=== PATIENT | male | born 1930 | race Caucasian/White ===

== ENCOUNTER 2021-01-28 07:59 | Observation (INO) | payer MEDICARE ==
[2021-01-28] MEDS ORDERED: DILTIAZEM 125 MG in SODIUM CHLORIDE 0.9% 100 ML IV SCH (08:15)
--- NOTE | 2021-01-28 08:17 | ED ---
General Adult HPI - General Chief complaint: Arrhythmia/Palpitations Stated complaint: Tachycardia Time Seen by Provider: 01/28/21 08:00 Source: patient, EMS, RN notes reviewed Mode of arrival: EMS Limitations: no limitations - History of Present Illness Initial comments: Patient is a pleasant 89-year-old male presenting to the emergency Department with complaints of concerns for tachycardia. Patient has had some mild fullness in his chest since 8:00 last night. Patient did check his heart rhythm at home and has been variable between 109 and 150. Patient states his normal heart rate is in the 70s. Patient states fullness is mild. Patient denies palpitations. No dyspnea. No nausea vomiting. There was a somewhat similar episode years ago with negative heart catheterization and stress test. Patient saw Dr. rosado on. Patient also saw Dr. Kong and there was question whether or not to do ablation however patient has been symptom-free since that time. - Related Data Home Medications Medication Instructions Recorded Confirmed Aspirin EC [Ecotrin] 650 mg PO DAILY PRN 01/28/21 01/28/21 Furosemide [Lasix] 40 mg PO DAILY 01/28/21 01/28/21 Latanoprost [Xalatan 0.005%] 1 drop RIGHT EYE HS 01/28/21 01/28/21 Magnesium 200 mg PO HS 01/28/21 01/28/21 Metoprolol Tartrate [Lopressor] 25 mg PO BID 01/28/21 01/28/21 Montelukast [Singulair] 10 mg PO DAILY 01/28/21 01/28/21 Potassium Chloride ER [K-Dur 10] 10 meq PO DAILY 01/28/21 01/28/21 Timolol Maleate [Timolol Maleate 1 drop RIGHT EYE BID 01/28/21 01/28/21 0.5% Ophth Gel] hydrALAZINE HCL [Apresoline] 50 mg PO DIRECTED 01/28/21 01/28/21 Allergies Allergy/AdvReac Type Severity Reaction Status Date / Time No Known Allergies Allergy Verified 01/28/21 08:44 Review of Systems ROS Statement: Those systems with pertinent positive or pertinent negative responses have been documented in the HPI. ROS Other: All systems not noted in ROS Statement are negative. Constitutional: Denies: fever Eyes: Denies: eye pain ENT: Denies: ear pain Respiratory: Denies: cough, dyspnea Cardiovascular: Reports: as per HPI. Denies: palpitations Endocrine: Denies: fatigue Gastrointestinal: Denies: abdominal pain Genitourinary: Denies: urgency Musculoskeletal: Denies: back pain Skin: Denies: rash Neurological: Denies: weakness Past Medical History Past Medical History: Asthma, Cancer, Heart Failure, Hypertension Additional Past Medical History / Comment(s): melanoma History of Any Multi-Drug Resistant Organisms: None Reported Past Surgical History: Bowel Resection, Cholecystectomy Additional Past Surgical History / Comment(s): cataract Past Psychological History: No Psychological Hx Reported Smoking Status: Never smoker Past Alcohol Use History: Occasional Past Drug Use History: None Reported General Exam Limitations: no limitations General appearance: alert, in no apparent distress Head exam: Present: normocephalic Eye exam: Present: normal appearance Neck exam: Present: normal inspection Respiratory exam: Present: normal lung sounds bilaterally Cardiovascular Exam: Present: tachycardia, irregular rhythm GI/Abdominal exam: Present: soft. Absent: tenderness Extremities exam: Present: normal inspection. Absent: pedal edema, calf tenderness Neurological exam: Present: alert Psychiatric exam: Present: normal affect, normal mood Skin exam: Present: normal color Course Vital Signs 01/28/21 01/28/21 08:04 08:22 Temperature 97.9 F Pulse Rate 121 H 87 Respiratory 18 18 Rate Blood Pressure 128/98 128/63 O2 Sat by Pulse 99 98 Oximetry - Reevaluation(s) Reevaluation #1: 01/28/21 08:16 Patient briefly converted to normal sinus rhythm on the heart monitor with a rate of 96. Patient was placed on heart rhythm monitor secondary to tachycardia and to evaluate for heart rate. Repeat EKG shows narrow complex tachycardia with a rate of 152. QRS 94. QT 292. QTC 464. Left axis. Incomplete right bundle-branch block. No acute ST change. 01/28/21 08:27 EKG #3 shows normal sinus rhythm 88. MT 190. QRS 86. QT 344. QTC 416. Left axis. No acute ST change. Q wave in lead III. EKG Findings - EKG Comments: EKG Findings:: A. fib with RVR, rate 127. QRS 84. QT 276. QTc 41. Normal axis. Normal QRS. Nonspecific ST-T. Medical Decision Making - Medical Decision Making Patient reevaluated and resting comfortably in bed. Patient is in sinus rhythm on the monitor. Dr. Rehman has been paged Case was discussed with Dr. Rehman, who will admit his patient. - Lab Data Result diagrams: 01/28/21 08:22 01/28/21 08:22 Lab Results 01/28/21 01/28/21 01/28/21 Range/Units 08:22 08:22 08:22 WBC 7.1 (3.8-10.6) k/uL RBC 4.24 L (4.30-5.90) m/uL Hgb 15.1 (13.0-17.5) gm/dL Hct 45.0 (39.0-53.0) % MCV 105.9 H (80.0-100.0) fL MCH 35.5 H (25.0-35.0) pg MCHC 33.6 (31.0-37.0) g/dL RDW 12.9 (11.5-15.5) % Plt Count 214 (150-450) k/uL MPV 7.5 Neutrophils % 55 % Lymphocytes % 31 % Monocytes % 8 % Eosinophils % 4 % Basophils % 1 % Neutrophils # 3.9 (1.3-7.7) k/uL Lymphocytes # 2.2 (1.0-4.8) k/uL Monocytes # 0.6 (0-1.0) k/uL Eosinophils # 0.3 (0-0.7) k/uL Basophils # 0.1 (0-0.2) k/uL Macrocytosis Slight PT 10.0 (9.0-12.0) sec INR 0.9 (<1.2) APTT 25.2 (22.0-30.0) sec Sodium 137 (137-145) mmol/L Potassium 3.8 (3.5-5.1) mmol/L Chloride 104 (98-107) mmol/L Carbon Dioxide 26 (22-30) mmol/L Anion Gap 7 mmol/L BUN 24 H (9-20) mg/dL Creatinine 0.84 (0.66-1.25) mg/dL Est GFR (CKD-EPI)AfAm >90 (>60 ml/min/1.73 sqM) Est GFR (CKD-EPI)NonAf 78 (>60 ml/min/1.73 sqM) Glucose 117 H (74-99) mg/dL Calcium 9.2 (8.4-10.2) mg/dL Magnesium 2.1 (1.6-2.3) mg/dL Total Bilirubin 1.0 (0.2-1.3) mg/dL AST 32 (17-59) U/L ALT 19 (4-49) U/L Alkaline Phosphatase 100 (38-126) U/L Troponin I (0.000-0.034) ng/mL Total Protein 6.5 (6.3-8.2) g/dL Albumin 3.8 (3.5-5.0) g/dL TSH 2.300 (0.465-4.680) mIU/L Free T4 1.45 (0.78-2.19) ng/dL 01/28/21 Range/Units 08:22 WBC (3.8-10.6) k/uL RBC (4.30-5.90) m/uL Hgb (13.0-17.5) gm/dL Hct (39.0-53.0) % MCV (80.0-100.0) fL MCH (25.0-35.0) pg MCHC (31.0-37.0) g/dL RDW (11.5-15.5) % Plt Count (150-450) k/uL MPV Neutrophils % % Lymphocytes % % Monocytes % % Eosinophils % % Basophils % % Neutrophils # (1.3-7.7) k/uL Lymphocytes # (1.0-4.8) k/uL Monocytes # (0-1.0) k/uL Eosinophils # (0-0.7) k/uL Basophils # (0-0.2) k/uL Macrocytosis PT (9.0-12.0) sec INR (<1.2) APTT (22.0-30.0) sec Sodium (137-145) mmol/L Potassium (3.5-5.1) mmol/L Chloride (98-107) mmol/L Carbon Dioxide (22-30) mmol/L Anion Gap mmol/L BUN (9-20) mg/dL Creatinine (0.66-1.25) mg/dL Est GFR (CKD-EPI)AfAm (>60 ml/min/1.73 sqM) Est GFR (CKD-EPI)NonAf (>60 ml/min/1.73 sqM) Glucose (74-99) mg/dL Calcium (8.4-10.2) mg/dL Magnesium (1.6-2.3) mg/dL Total Bilirubin (0.2-1.3) mg/dL AST (17-59) U/L ALT (4-49) U/L Alkaline Phosphatase (38-126) U/L Troponin I <0.012 (0.000-0.034) ng/mL Total Protein (6.3-8.2) g/dL Albumin (3.5-5.0) g/dL TSH (0.465-4.680) mIU/L Free T4 (0.78-2.19) ng/dL - Radiology Data Radiology results: image reviewed (Chest x-ray reveals no acute process) Disposition Clinical Impression: New onset a-fib Disposition: ADMITTED IP TO THIS HOSP Is patient prescribed a controlled substance at d/c from ED?: No Decision Time: 09:30
[2021-01-28 08:43] LABS: Basophils # (A) 0.1 k/uL (0-0.2); Basophils % (A) 1 %; Eosinophils # (A) 0.3 k/uL (0-0.7); Eosinophils % (A) 4 %; HGB 15.1 gm/dL (13.0-17.5); Lymphocytes # (A) 2.2 k/uL (1.0-4.8); Lymphocytes % (A) 31 %; MCH 35.5 pg (25.0-35.0); MCHC 33.6 g/dL (31.0-37.0); MCV 105.9 fL (80.0-100.0); Macrocytosis Slight; Mean Platelet Volume 7.5; Monocytes # (A) 0.6 k/uL (0-1.0); Monocytes % (A) 8 %; Neutrophils # (A) 3.9 k/uL (1.3-7.7); Neutrophils % (A) 55 %; Platelet Count 214 k/uL (150-450); RBC 4.24 m/uL (4.30-5.90); RDW 12.9 % (11.5-15.5); WBC 7.1 k/uL (3.8-10.6)
--- NOTE | 2021-01-28 08:51 | XR ---
EXAMINATION TYPE: XR chest 1V portable DATE OF EXAM: 01/28/2021 COMPARISON: NONE HISTORY: Dysrhythmia. TECHNIQUE: Single AP portable frontal view of the chest is obtained. FINDINGS: There is mild chronic parenchymal change without suspicious focal air space opacity, pleur al effusion, or pneumothorax seen. The cardiac silhouette size is stable and within normal limits. Overlying EKG leads. The osseous structures are demineralized.. Degenerative change right glenohumera l joint. IMPRESSION: No acute process.
[2021-01-28 08:53] LABS: ALT 19 U/L (4-49); AST 32 U/L (17-59); African American GFR (CKD) >90 (>60 ml/min/1.73 sqM); Albumin 3.8 g/dL (3.5-5.0); Alkaline Phosphatase 100 U/L (38-126); Anion Gap 7 mmol/L; Blood Urea Nitrogen 24 mg/dL (9-20); Calcium 9.2 mg/dL (8.4-10.2); Carbon Dioxide 26 mmol/L (22-30); Chloride 104 mmol/L (98-107); Glucose 117 mg/dL (74-99); Magnesium 2.1 mg/dL (1.6-2.3); Non-African American GFR(CKD) 78 (>60 ml/min/1.73 sqM); Potassium 3.8 mmol/L (3.5-5.1); Sodium 137 mmol/L (137-145); Total Protein 6.5 g/dL (6.3-8.2)
[2021-01-28 08:55] LABS: INR 0.9 (<1.2); Partial Thromboplastin Time 25.2 sec (22.0-30.0)
[2021-01-28 09:09] LABS: T4, Free (Free Thyroxine) 1.45 ng/dL (0.78-2.19)
[2021-01-28] MEDS ORDERED: NALOXONE 0.4 MG/ML 1 ML VIAL IV PRN (09:30)
[2021-01-28] MEDS: SODIUM CHLORIDE 0.9% 1,000 ML IV SCH (09:47)
--- NOTE | 2021-01-28 12:18 | P.CRDCN ---
History of Present Illness History of present illness: HISTORY OF PRESENTING ILLNESS This is a pleasant 89-year-old male past medical history significant for SVT, hypertension, melanoma and asthma. He does not follow regularly in the office with a manager marketing communication. He has seen Dr. Bob in the past and they discussed a possible EP study and SVT ablation however the patient decided not to proceed. According to the office noted from 2017 the patient had undergone a LHC approximately 6-8 years prior to that time which was normal. We have been asked to see in consultation for new onset a-fib. He states last night while checking his pulse at home, which he does routinely, and his heart rate was fluctuating from 100-150. He denies chest pain, shortness of breath, dizziness, nausea, vomiting or diaphoresis. EKG on arrival revealed atrial fibrillation with mildly rapid heart rate. 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 He subsequently spontaneously converted back to sinus and has been maintaining that ever since. Chest x-ray is negative for acute cardiopulmonary process. Laboratory data reviewed, WBC 7.1, hgb 15.1, plt 214, sodium 137, potassium 3.8, creatinine 0.84, magnesium 2.1, cardiac enzymes negative 1, TSH 2.3. Currently cardiac medications include aspirin 325 mg daily, Lasix 40 mg daily, Lopressor 25 mg twice a day and hydralazine 50 mg daily however the patient states he has not been taking hydralazine because it seems to cause him an upset stomach. REVIEW OF SYSTEMS At the time of my exam: CONSTITUTIONAL: Denies fever or chills. CARDIOVASCULAR: Denies chest pain, shortness of breath, orthopnea, PND or palpitations. RESPIRATORY: Denies cough. GASTROINTESTINAL: Denies abdominal pain, diarrhea, constipation, nausea or vomiting. MUSCULOSKELETAL: Denies myalgias. NEUROLOGIC: Denies numbness, tingling, headacbe or weakness. ENDOCRINE: Denies fatigue, weight change, polydipsia or polyurina. GENITOURINARY: Denies burning, hematuria or urgency with micturation. HEMATOLOGIC: Denies history of anemia or bleeding. PHYSICAL EXAMINATION Blood pressure 138/87 heart rate 82 afebrile and maintaining oxygen saturation on room air. CONSTITUTIONAL: No apparent distress. Obese. HEENT: Head is normocephalic. Pupils are equal, round. Sclerae anicteric. Mucous membranes of the mouth are moist. No JVD. No carotid bruit. CHEST EXAMINATION: Lungs are clear to auscultation. No chest wall tenderness is noted on palpation or with deep breathing. HEART EXAMINATION: Regular rate and rhythm. S1, S2 heard. Soft systolic ejection murmur at the base, no gallops or rub. ABDOMEN: Soft, nontender. Positive bowel sounds. EXTREMITIES: 2+ peripheral pulses, trace lower extremity edema and no calf tenderness. NEUROLOGIC EXAMINATION: Patient is awake, alert and oriented x3. ASSESSMENT New onset paroxysmal atrial fibrillation, currently in sinus SVT, spontaneously converted Hypertension Asthma Melanoma PLAN Increase lopressor to 50 mg BID. Discontinue hydralazine. Initiate eliquis 5 mg BID and check the cost prior to discharge. Obtain 2D echocardiogram and doppler study to assess cardiac structure and function. Continue to obtain serial cardiac enzymes to rule out an acute event. If enzymes are normal he can be discharged this afternoon. Follow up in the office with Dr. Avina next week. Thank you kindly for this consultation. Nurse Practitioner note has been reviewed, I agree with a documented findings and plan of care. Patient was seen and examined. Past Medical History Past Medical History: Asthma, Cancer, Heart Failure, Hypertension Additional Past Medical History / Comment(s): melanoma History of Any Multi-Drug Resistant Organisms: None Reported Past Surgical History: Bowel Resection, Cholecystectomy Additional Past Surgical History / Comment(s): cataract Past Psychological History: No Psychological Hx Reported Smoking Status: Never smoker Past Alcohol Use History: Occasional Past Drug Use History: None Reported Medications and Allergies Home Medications Medication Instructions Recorded Confirmed Type Aspirin EC [Ecotrin] 650 mg PO DAILY PRN 01/28/21 01/28/21 History Furosemide [Lasix] 40 mg PO DAILY 01/28/21 01/28/21 History Latanoprost [Xalatan 0.005%] 1 drop RIGHT EYE HS 01/28/21 01/28/21 History Magnesium 200 mg PO HS 01/28/21 01/28/21 History Metoprolol Tartrate [Lopressor] 25 mg PO BID 01/28/21 01/28/21 History Montelukast [Singulair] 10 mg PO DAILY 01/28/21 01/28/21 History Potassium Chloride ER [K-Dur 10] 10 meq PO DAILY 01/28/21 01/28/21 History Timolol Maleate [Timolol Maleate 1 drop RIGHT EYE BID 01/28/21 01/28/21 History 0.5% Ophth Gel] hydrALAZINE HCL [Apresoline] 50 mg PO DIRECTED 01/28/21 01/28/21 History Allergies Allergy/AdvReac Type Severity Reaction Status Date / Time No Known Allergies Allergy Verified 01/28/21 08:44 Physical Exam Vitals: Vital Signs Temp Pulse Resp BP Pulse Ox 01/28/21 10:25 82 16 138/87 98 01/28/21 08:22 87 18 128/63 98 01/28/21 08:04 97.9 F 121 H 18 128/98 99 Intake and Output 01/27/21 01/28/21 01/28/21 22:59 06:59 14:59 Other: Weight 98.43 kg Results 01/28/21 08:22 01/28/21 08:22 Cardiac Enzymes 01/28/21 01/28/21 Range/Units 08:22 08:22 AST 32 (17-59) U/L Troponin I <0.012 (0.000-0.034) ng/mL Coagulation 01/28/21 Range/Units 08:22 PT 10.0 (9.0-12.0) sec APTT 25.2 (22.0-30.0) sec CBC 01/28/21 Range/Units 08:22 WBC 7.1 (3.8-10.6) k/uL RBC 4.24 L (4.30-5.90) m/uL Hgb 15.1 (13.0-17.5) gm/dL Hct 45.0 (39.0-53.0) % Plt Count 214 (150-450) k/uL Comprehensive Metabolic Panel 01/28/21 Range/Units 08:22 Sodium 137 (137-145) mmol/L Potassium 3.8 (3.5-5.1) mmol/L Chloride 104 (98-107) mmol/L Carbon Dioxide 26 (22-30) mmol/L BUN 24 H (9-20) mg/dL Creatinine 0.84 (0.66-1.25) mg/dL Glucose 117 H (74-99) mg/dL Calcium 9.2 (8.4-10.2) mg/dL AST 32 (17-59) U/L ALT 19 (4-49) U/L Alkaline Phosphatase 100 (38-126) U/L Total Protein 6.5 (6.3-8.2) g/dL Albumin 3.8 (3.5-5.0) g/dL Current Medications Generic Name Dose Route Start Last Admin Trade Name Freq PRN Reason Stop Dose Admin Apixaban 5 mg 01/28/21 11:30 Apixaban 5 Mg Tab PO BID HEIDI Diltiazem HCl 125 mg/ Sodium 125 mls @ 5 mls/hr 01/28/21 08:15 01/28/21 10:25 Chloride IV Not Given .Q24H HEIDI 5 MG/HR Sodium Chloride 1,000 mls @ 20 mls/hr 01/28/21 09:30 01/28/21 09:47 Saline 0.9% IV Not Given .Q24H HEIDI Metoprolol Tartrate 50 mg 01/28/21 11:30 Metoprolol Tartrate 50 Mg Tab PO BID HEIDI Naloxone HCl 0.2 mg 01/28/21 09:30 Naloxone 0.4 Mg/Ml 1 Ml Vial IV Q2M PRN Opioid Reversal Intake and Output 01/27/21 01/28/21 01/28/21 22:59 06:59 14:59 Other: Weight 98.43 kg Patient Weight 01/29/21 06:59 Weight 98.43 kg 01/28/21 08:22 01/28/21 08:22
--- NOTE | 2021-01-28 12:31 | ECHOF ---
Referral Reason:afib, new onset. MEASUREMENTS -------- HEIGHT: 180.3 cm WEIGHT: 98.4 kg BP: IVSd: 1.2 cm (0.6 - 1.1) LVIDd: 4.1 cm (3.9 - 5.3) LVPWd: 1.1 cm (0.6 - 1.1) IVSs: 1.4 cm LVIDs: 2.1 cm LVPWs: 1.6 cm LAESV Index (A-L): 18.12 ml/m Ao Diam: 2.9 cm (2.0 - 3.7) AV Cusp: 1.6 cm (1.5 - 2.6) LA Diam: 3.2 cm (2.7 - 3.8) MV EXCURSION: 22.256 mm (> 18.000) MV EF SLOPE: 46 mm/s (70 - 150) EPSS: 0.9 cm MV E Waldemar: 0.69 m/s MV DecT: 163 ms MV A Waldemar: 0.93 m/s MV E/A Ratio: 0.75 AV maxP.14 mmHg AV meanP.33 mmHg RAP: 5.00 mmHg RVSP: 21.68 mmHg FINDINGS -------- This was a technically difficult study with suboptimal views. The left ventricular size is normal. There is mild concentric left ventricular hypertrophy. Overa ll left ventricular systolic function is normal with, an EF between 55 - 60 %. Normal LAP Grade 1 D iastolic Dysfunction. The right ventricle is normal in size. The left atrial size is normal. Normal LA size by volume 22+/-6 ml/m2. The right atrial size is normal. Lumason used Aortic valve is trileaflet and is mildly thickened. There is mild aortic stenosis present. Peak/m santana gradient across the Aortic Valve is 19.14mmHg / 13.33mmHg. The mitral valve is normal. There is trace mitral regurgitation. The tricuspid valve appears structurally normal. Trace tricuspid regurgitation present. Right zoe tricular systolic pressure is normal at < 35 mmHg. There is no pulmonic regurgitation present. The aortic root size is normal. IVC Not well visulized. There is no pericardial effusion. CONCLUSIONS -------- 1. The left ventricular size is normal. 2. There is mild concentric left ventricular hypertrophy. 3. Overall left ventricular systolic function is normal with, an EF between 55 - 60 %. 4. Normal LAP Grade 1 Diastolic Dysfunction. 5. Aortic valve is trileaflet and is mildly thickened. 6. There is mild aortic stenosis present. 7. Peak/mean gradient across the Aortic Valve is 19.14mmHg / 13.33mmHg. 8. There is trace mitral regurgitation. 9. Trace tricuspid regurgitation present. 10. There is no pericardial effusion. TOGGLER: Sarah Omalley RDCS
--- NOTE | 2021-01-28 13:25 | P.HPIM ---
History of Present Illness H&P Date: 01/28/21 (New onset atrial fibrillation paroxysmal. Hypertension uncontrolled.) Chief Complaint: Recurrent atrial fibrillation paroxysmal, hypertension uncontrolled. History and physical date of service 01/28/[address] Rehman. Patient seen evaluated at module 1 in the ER at [facility]. Chief complaint: Patient stated that during the night he always check his pulse ox at home and he found that his heart rate progressively increasing with the palpitation with the underlying past history of cardiac dysrhythmia and seen by Dr. Dilan MORRISSEY overlock collar setter and at that time patient advised with ablation, subsequently patient did well with medication and he was not comfortable with the ablation. History of present illness Patient has been doing well however his blood pressure was not controlled well. Patient treated with hydralazine medication however he called the office on December 03 stated that the hydralazine did make him shaky and he stopped the medication. And advised that he check the blood pressure at home and to call us. During the night his heart rate was palpitation was increased progressively after maximum 1 60 bpm by his pulse ox, he reported he become uncomfortable he called his son and advised him to come because his was ill and he was taking care of her. Subsequently they called the EMS and brought patient to the ER at [facility], and they found that he has underlying atrial fibrillation. In the ER patient seen by Dr. Bates and found that he had atrial fibrillation with RVR and at that time they was starting to put him on cardiac has an drip IV however patient flipped back to normal sinus rhythm. Cardiology consult was requested and Dr. Avina overlock collar setter did see the patient and he had adjusted his medication and he had monitored her his troponin and currently patient on sinus rhythm Because of these event happened during the night, we'll hold the patient 24-hour to see if it is recurrent arrhythmias occurred, on observation status and at that time they will be calling the cardiology if it is cared again . Patient seen and evaluated in module #1 in the ER. Patient had a chest x-ray and was negative He had laboratories: Indicating his PT and INR 10/0.9 and PTT 25.2. His chemistry indicating sodium 137, potassium 3.8, chloride 104, carbon dioxide 26, anion gap 7, BUN 24, creatinine 0.84, GFR estimated for non- 78, glucose 117 nonfasting, calcium 9.2, magnesium 2.1, total bilirubin 1.0, AST 32, a LT 19, alk phos 100, Troponin 1 less than 0.012 and repeat 0.015. HEENT, total protein 6.5 and albu min 3.8 TSH, normal 2.3, free T4 1 0.45. Coronavirus PCR not detected. 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 And hypertension with hypertensive heart disease. Family history: Charlette. Habits: Caffeine 2 cups a day. ALLERGY: #1 Micardis No. 2 DynaCirc No. 3 separate edema #4 Cozaar No. 5 Caduet No. 6 Fabricius spray. Medication at home: #1 [place] cast 10 mg daily #2 frusemide 20 mg daily #3 metoprolol tartrate 25 mg twice a day. #4 potassium chloride 10 mEq twice a day. #5 vitamin B12 tablet 1000 g OTC daily number 6H pro-air HFA 90 g per inhalation 2 puffs 4 times a day when necessary #7 PreserVision No. 8 magnesium oxide 400 mg daily #9 timolol ophthalmic med he ate 0.25% solution 1 drop in the right eye twice a day #10 latanoprost ophthalmic solution 0.005% 1 drop at bedtime in the right eye by Dr. Salas ophthalmic Review of system: Cardiovascular tachycardia with palpitation and feeling uncomfortable and chest. Progressive occurred at night and the evening hour at home and recurrent. History of hypertension Pulmonary no shortness of breath no wheezes. History of asthma controlled under the treatment and history of interstitial lung disease GI no nausea vomiting or diarrhea or abdominal pain or bloating. no dysuria or hematuria. Endocrine no history of diabetes mellitus or thyroid dysfunction. Musculoskeletal: No muscle ache and no history of myopathies Laboratory review of the rest of the 14 bow noncontributory 30s. Physical exam: Head was normocephalic and atraumatic. Mental status conscious alert [place] 3 ambulatory. Pupil was equal reactive oropharynx natural teeth, hearing decreased with the use of hearing aid and impair. Neck was supple no JVD no thyromegaly no lymphadenopathy trachea midline. Chest clear to auscultation and percussion no wheezes no rhonchi's. Chest x-ray was negative Heart currently at the time of examination sinus rhythm and regular, Dr. Avina the overlock collar setter did see the patient and adjusted his medication with increase of the beater mark to 50 mg twice a day and started him on requests with the underlying paroxysmal atrial fibrillation. Abdomen is soft positive bowel sounds no organ enlargement. Extremities: Good perfusion bilaterally with normal pulses and dorsalis pedis and posterior tibial, no tremors, no edema, no evidence of congestive heart failure. Neurologically: Stable no lateralizing sign. No neuro deficit. Assessment: #1 atrial fibrillation paroxysmal versus the history of SVT in the past. And recurrent especially during the night. #2 hypertension with hypertensive heart disease with the remote history of cardiac cath was negative. #3 history of interstitial lung disease. #4 asthma/COPD/never smoke currently stable. #5 hyperlipidemia considered Plan: #1 patient placed on observation for monitoring over night with the recurrent atrial fibrillation with a rapid ventricular response. #2 continue his home medication with the adjustment by Dr. Avina done today. #3 patient placed on adequate S twice a day. Cardiology Dr. Avina. #4 if overnight monitoring stated that his cleared and no further events and also cleared by cardiology we'll discharge him tomorrow to be followed by cardiology with choice #5 obtain lipid profile if wasn't done. Past Medical History Past Medical History: Asthma, Cancer, Heart Failure, Hypertension Additional Past Medical History / Comment(s): melanoma History of Any Multi-Drug Resistant Organisms: None Reported Past Surgical History: Bowel Resection, Cholecystectomy Additional Past Surgical History / Comment(s): cataract Past Anesthesia/Blood Transfusion Reactions: No Reported Reaction Past Psychological History: No Psychological Hx Reported Smoking Status: Never smoker Past Alcohol Use History: Occasional Past Drug Use History: None Reported - Past Family History Father Additional Family Medical History / Comment(s): Father had lung disease from occupational exposure and was on oxygen later in life. He lived to be 86yrs old. Mother Family Medical History: Diabetes Mellitus, Osteoarthritis (OA) Additional Family Medical History / Comment(s): Mother lived to be 80yrs. Medications and Allergies Home Medications Medication Instructions Recorded Confirmed Type Apixaban [Eliquis] 5 mg PO BID #60 tab 01/28/21 Rx Furosemide [Lasix] 40 mg PO DAILY 01/28/21 01/28/21 History Latanoprost [Xalatan 0.005%] 1 drop RIGHT EYE HS 01/28/21 01/28/21 History Magnesium 200 mg PO HS 01/28/21 01/28/21 History Metoprolol Tartrate [Lopressor] 50 mg PO BID #180 tab 01/28/21 Rx Montelukast [Singulair] 10 mg PO DAILY 01/28/21 01/28/21 History Potassium Chloride ER [K-Dur 10] 10 meq PO DAILY 01/28/21 01/28/21 History Timolol Maleate [Timolol Maleate 1 drop RIGHT EYE BID 01/28/21 01/28/21 History 0.5% Ophth Gel] Allergies Allergy/AdvReac Type Severity Reaction Status Date / Time No Known Allergies Allergy Verified 01/28/21 08:44 Physical Exam Vitals: Vital Signs Temp Pulse Resp BP Pulse Ox 01/28/21 12:14 88 18 150/75 98 01/28/21 10:25 82 16 138/87 98 01/28/21 08:22 87 18 128/63 98 01/28/21 08:04 97.9 F 121 H 18 128/98 99 Intake and Output 01/27/21 01/28/21 01/28/21 22:59 06:59 14:59 Other: Weight 98.43 kg Results CBC & Chem 7: 01/28/21 08:22 01/28/21 08:22 Labs: Abnormal Lab Results - Last 24 Hours (Table) 01/28/21 01/28/21 Range/Units 08:22 08:22 RBC 4.24 L (4.30-5.90) m/uL MCV 105.9 H (80.0-100.0) fL MCH 35.5 H (25.0-35.0) pg BUN 24 H (9-20) mg/dL Glucose 117 H (74-99) mg/dL Thrombosis Risk Factor Assmnt - Choose All That Apply Any of the Below Risk Factors Present?: Yes Each Factor Represents 1 point: Obesity (BMI >25) Other Risk Factors: Yes Each Risk Factor Represents 2 Points: Malignancy Each Risk Factor Represents 3 Points: Age 75 years or older Other congenital or acquired thrombophilia - If yes, enter type in comment: No Thrombosis Risk Factor Assessment Total Risk Factor Score: 6 Thrombosis Risk Factor Assessment Level: High Risk
[2021-01-28] MEDS: APIXABAN 5 MG TAB PO SCH ×2 (14:02→21:44)
[2021-01-28] MEDS: METOPROLOL TARTRATE 50 MG TAB PO SCH ×2 (14:02→21:41)
[2021-01-28 16:00] LABS: Cholesterol 132 mg/dL (<200); HDL Cholesterol 28 mg/dL (40-60); LDL Cholesterol,Calculated 92 mg/dL (0-99); Triglycerides 60 mg/dL (<150)
[2021-01-28] MEDS ORDERED: LATANOPROST 0.005% OPHTH DROPS 2.5 ML BTL RIGHT EYE SCH (21:00)
[2021-01-28] MEDS ORDERED: MAGNESIUM OXIDE 400 MG TAB PO SCH (21:00)
[2021-01-28] MEDS: TIMOLOL 0.5% OPHTH DROPS 5 ML BTL RIGHT EYE SCH (22:39)
[2021-01-29 08:27] VITALS: BP 152/81; PULSE 61; RESP 18; TEMP 97.6
[2021-01-29] MEDS ORDERED: FUROSEMIDE 40 MG TAB PO SCH (09:00)
[2021-01-29] MEDS ORDERED: MONTELUKAST 10 MG TAB PO SCH (09:00)
[2021-01-29] MEDS ORDERED: POTASSIUM CHLORIDE ER 10 MEQ TAB.ER.PRT PO SCH (09:00)
[2021-01-29] MEDS: APIXABAN 5 MG TAB PO SCH (09:31)
[2021-01-29] MEDS: TIMOLOL 0.5% OPHTH DROPS 5 ML BTL RIGHT EYE SCH (09:31)
[2021-01-29] MEDS: METOPROLOL TARTRATE 50 MG TAB PO SCH (09:31)
[2021-01-29] MEDS: SODIUM CHLORIDE 0.9% 1,000 ML IV SCH (09:32)
--- NOTE | 2021-01-29 11:40 | P.PN ---
Subjective This is a pleasant 89-year-old male past medical history significant for SVT, hypertension, melanoma and asthma. He does not follow regularly in the office with a traveling inventory associate. He has seen Dr. Bob in the past and they discussed a possible EP study and SVT ablation however the patient decided not to proceed. According to the office noted from 2017 the patient had undergone a LHC approximately 6-8 years prior to that time which was normal. We have been asked to see in consultation for new onset a-fib. He states last night while abisai cking his pulse at home, which he does routinely, and his heart rate was fluctuating from 100-150. He denies chest pain, shortness of breath, dizziness, nausea, vomiting or diaphoresis. EKG on arrival revealed atrial fibrillation with mildly rapid heart rate. Repeat EKG showed short RP SVT likely AV node re- entrant tachycardia. He subsequently spontaneously converted back to sinus and has been maintaining that ever since. Chest x-ray is negative for acute cardiopulmonary process. Laboratory data reviewed, WBC 7.1, hgb 15.1, plt 214, sodium 137, potassium 3.8, creatinine 0.84, magnesium 2.1, cardiac enzymes negative 1, TSH 2.3. Currently cardiac medications include aspirin 325 mg daily, Lasix 40 mg daily, Lopressor 25 mg twice a day and hydralazine 50 mg daily however the patient states he has not been taking hydralazine because it seems to cause him an upset stomach. Patient had ischemic workup in the past with reportedly fairly normal left heart catheter 6-8 years ago. Patient with no chest pain and likely related to tachycardia, do no suspect acute coronary syndrome. Echo reviewed with EF 55- 60% with mild atoric stenosis. . 01/29/21: Patient seen and examined at bedside. No apparent distress. Sitting at the edge of the bed. Eager about going home. Troponin negative x 3. Telemetry reviewed patient currently in sinus mechanism. Vital signs BP 152/81 HR 61, afebrile and maintaining oxygen saturation on room air. PHYSICAL EXAMINATION CONSTITUTIONAL: No apparent distress. Obese. HEENT: Head is normocephalic. Pupils are equal, round. Sclerae anicteric. Mucous membranes of the mouth are moist. No JVD. No carotid bruit. CHEST EXAMINATION: Lungs are clear to auscultation. No chest wall tenderness is noted on palpation or with deep breathing. HEART EXAMINATION: Regular rate and rhythm. S1, S2 heard. Soft systolic ejection murmur at the base, no gallops or rub. ABDOMEN: Soft, nontender. Positive bowel sounds. EXTREMITIES: 2+ peripheral pulses, trace lower extremity edema and no calf tenderness. NEUROLOGIC EXAMINATION: Patient is awake, alert and oriented x3. ASSESSMENT New onset paroxysmal atrial fibrillation, currently in sinus SVT, spontaneously converted Hypertension Asthma Melanoma PLAN -Discussed options with patient and he will like to try medical therapy. We will continue metoprolol. New onset atrial fibrillation and patient is agreeable to anticoagulation. Patient appears stable for discharge from cardiac standpoint. Continue Eliquis 5mg BID and metoprolol 50mg BID. -Follow up in the office with Dr. Avina next week. Thank you kindly for this consultation. Nurse Practitioner note has been reviewed, I agree with a documented findings and plan of care. Patient was seen and examined. Objective - Vital Signs Vital signs: Vital Signs Temp 97.6 F 01/29/21 07:00 Pulse 61 01/29/21 07:00 Resp 18 01/29/21 07:00 BP 152/81 01/29/21 07:00 Pulse Ox 95 01/29/21 07:00 Intake & Output 01/28/21 01/29/21 01/29/21 18:59 06:59 18:59 Intake Total 200 Balance 200 Weight 98.43 kg Intake: Oral 200 Other: # Voids 1 - Labs CBC & Chem 7: 01/28/21 08:22 01/28/21 08:22 Labs: Abnormal Lab Results - Last 24 Hours (Table) 01/28/21 Range/Units 13:05 HDL Cholesterol 28 L (40-60) mg/dL
--- NOTE | 2021-01-29 13:16 | P.DS ---
Providers Date of admission: 01/28/21 09:30 Expected date of discharge: 01/29/21 (Congestive heart failure, hypertension with hypertensive heart disease) Attending physician: Delio Rehman Consults: 01/28/21 09:31 Consult Physician Routine Consulting Provider: Mateo Bob Consult Reason/Comments: a fib Do you want consulting provider notified?: Yes Primary care physician: Delio Rehman There is a dictation discharge summary date of service 01/29/2021 Patient admitted on observation status for monitoring arrhythmias. Seen and cleared by cardiology today Dr. Avina. : Final diagnosis: Acute onset of atrial fibrillation paroxysmal with a rapid ventricular response. SVT result. Hypertension with hypertensive heart disease. Peripheral edema on the ankle and feet 1+ monitored and patient on diuresis and will be followed by Dr. Avina. History of asthma stable History of melanoma has been excised. ALLERGY unknown. ER presentation: Patient presented to the emergency room [facility] , chief complaint palpitation feeling pressure with a heart rate tachycardic in the range up to 1 60 bpm. Patient brought to the ER by EMS. Patient has previous history of SVT in the past. In the ER and in the EMS monitoring was indicating atrial fibrillation. On bimanual onset. With a history of hypertension and hypertensive heart disease. Hospital course: Patient seen in the ER by Dr. Avina cpc and patient adjusted his medication as well as started on requests twice a day 5 mg as well increased his metoprolol tartrate to 50 mg twice a day. As well as continued on Lasix 40 mg once a day with potassium supplementation. Patient has his arrhythmia during the late evening hours and night, we kept the patient overnight to detect if this would be recurrent during the night and the evening. Patient seen by Dr. Avina today and have no recurrence with the current medication and cleared for discharge. [id number] examination: His vital sign is normal with temperature 97.6 F oral, heart rate is sinus rhythm 61 bpm, respiratory rate 18, his blood pressure is improving however has not yet well controlled and his blood pressure 152/81 however will be seen and monitored by Dr. Avina's pulse ox is 95% on room air. HEENT head was normocephalic and atraumatic pupil was equal reactive oropharynx was negative Neck was supple no JVD no thyromegaly no lymphadenopathy trachea midline. Chest clear to auscultation and percussion no wheezes no rhonchi's. Heart: PMI in the fifth intercostal space outside midclavicular line, his echocardiogram done on this admission with the presence of ejection fraction 55- 60%, mild concentric left ventricular hypertrophy, diastolic dysfunction grade 1. Next mild aortic stenosis with the peak gradient 19.14 mmHg and mean gradient 13.33 mmHg, trace mitral regurg, trace tricuspid regurg, no pericardial effusion. Abdomen soft and nontender protuberant positive bowel sounds. Extremities he had 1+ pitting edema bilaterally, the pulses is intact to both lower extremities with normal dorsalis pedis and posterior tibial 2+ over 2+. Neurologically: Stable general condition no lateralizing sign, no neuro deficit. Assessment stable general condition for discharge home today. New Plan patient will be continued on the above medication, prescription given by cardiology for the requests and the beta mark with the changing of the dose and continuing other home medication. Follow-up with Dr. Avina cpc. Follow-up with Dr. Gary in the primary care in 1 week or earlier if need. Plan - Discharge Summary Discharge Rx Participant: No New Discharge Prescriptions: New Apixaban [Eliquis] 5 mg PO BID #60 tab Metoprolol Tartrate [Lopressor] 50 mg PO BID #180 tab Continue Timolol Maleate [Timolol Maleate 0.5% Ophth Gel] 1 drop RIGHT EYE BID Magnesium 200 mg PO HS Potassium Chloride ER [K-Dur 10] 10 meq PO DAILY Montelukast [Singulair] 10 mg PO DAILY Latanoprost [Xalatan 0.005%] 1 drop RIGHT EYE HS Furosemide [Lasix] 40 mg PO DAILY Discontinued Aspirin EC [Ecotrin] 650 mg PO DAILY PRN PRN Reason: Chest Pain Metoprolol Tartrate [Lopressor] 25 mg PO BID hydrALAZINE HCL [Apresoline] 50 mg PO DIRECTED Discharge Medication List Apixaban [Eliquis] 5 mg PO BID #60 tab 01/28/21 [Rx] Furosemide [Lasix] 40 mg PO DAILY 01/28/21 [History] Latanoprost [Xalatan 0.005%] 1 drop RIGHT EYE HS 01/28/21 [History] Magnesium 200 mg PO HS 01/28/21 [History] Metoprolol Tartrate [Lopressor] 50 mg PO BID #180 tab 01/28/21 [Rx] Montelukast [Singulair] 10 mg PO DAILY 01/28/21 [History] Potassium Chloride ER [K-Dur 10] 10 meq PO DAILY 01/28/21 [History] Timolol Maleate [Timolol Maleate 0.5% Ophth Gel] 1 drop RIGHT EYE BID 01/28/21 [History] Follow up Appointment(s)/Referral(s): Perez Avina DO [STAFF PHYSICIAN] - 1 Week Delio Rehman MD [Primary Care Provider] - 1 Week
== END 2021-01-29 14:16 | disposition home or self-care (01) ==
LOC: EC 07:59 → 6NMEDSUR 09:30
PROVIDERS: ADMIT Internal Medicine; ATTEND Internal Medicine
DX: I48.91 Unspecified atrial fibrillation (principal); I47.1 Supraventricular tachycardia; I11.0 Hypertensive heart disease with heart failure; I50.9 Heart failure, unspecified; I48.0 Paroxysmal atrial fibrillation; J44.9 Chronic obstructive pulmonary disease, unspecified; N40.0 Benign prostatic hyperplasia without lower urinary tract symptoms; E78.5 Hyperlipidemia, unspecified; C43.9 Malignant melanoma of skin, unspecified; Z82.5 Family history of asthma and other chronic lower respiratory diseases; Z83.3 Family history of diabetes mellitus; Z85.820 Personal history of malignant melanoma of skin; Z79.82 Long term (current) use of aspirin; Z79.899 Other long term (current) drug therapy; Z82.49 Family history of ischemic heart disease and other diseases of the circulatory system; Z79.01 Long term (current) use of anticoagulants; Z20.822 Contact with and (suspected) exposure to COVID-19
CPT/HCPCS: 93005 ×2; 99285; 36415; 84439; 84481; 80053; 80061; 83735; 84443; 84484; 85025; 85610; 85730; 87635; 71045; G0378 ×2; C8929; Q9950; 93306

== ENCOUNTER 2021-04-23 15:16 | Emergency (ER) | payer MEDICARE ==
[2021-04-23 15:22] VITALS: RESP 20; TEMP 97.5
[2021-04-23] MEDS ORDERED: SODIUM CHLORIDE 0.9% 500 ML 500 ML IV STA (15:36)
--- NOTE | 2021-04-23 15:48 | ED ---
General Adult HPI - General Chief complaint: Syncope Stated complaint: Fall, arm injury Time Seen by Provider: 04/23/21 15:23 Source: patient, RN notes reviewed, old records reviewed Mode of arrival: ambulatory - History of Present Illness Initial comments: 89-year-old male presents status post fall with right shoulder injury. Patient states he was gardening, steroid and turned and fell onto his right shoulder. He has on anticoagulation. There is no head injury no loss consciousness. Patient complaining of right shoulder pain. He denies any preceding chest pain or palpitations. He states he is currently taking 50 mg of metoprolol twice daily and believes this may be too much. No vomiting or diarrhea. No fever. - Related Data Home Medications Medication Instructions Recorded Confirmed Furosemide [Lasix] 40 mg PO DAILY 01/28/21 04/23/21 Latanoprost [Xalatan 0.005%] 1 drop RIGHT EYE HS 01/28/21 04/23/21 Magnesium 400 mg PO HS 01/28/21 04/23/21 Montelukast [Singulair] 10 mg PO DAILY 01/28/21 04/23/21 Potassium Chloride ER [K-Dur 10] 10 meq PO DAILY 01/28/21 04/23/21 Timolol Maleate [timoloL maleate 1 drop RIGHT EYE BID 01/28/21 04/23/21 0.5% Ophth Gel] Albuterol Sulfate [Proair Hfa] 2 puff INHALATION RT-Q6H PRN 04/23/21 04/23/21 Cyanocobalamin (Vitamin B-12) 1,000 mcg PO HS 04/23/21 04/23/21 [Vitamin B-12] Vit C/E/Zn/Coppr/Lutein/Zeaxan 1 cap PO HS 04/23/21 04/23/21 [Preservision Areds 2 Softgel] Previous Rx's Medication Instructions Recorded Apixaban [Eliquis] 5 mg PO BID #60 tab 01/28/21 Metoprolol Tartrate [Lopressor] 50 mg PO BID #180 tab 01/28/21 HYDROcodone/APAP 5-325MG [[place] 1 tab PO Q6HR PRN #12 tab 04/23/21 5-325] Allergies Allergy/AdvReac Type Severity Reaction Status Date / Time No Known Allergies Allergy Verified 04/23/21 16:57 Review of Systems ROS Statement: Those systems with pertinent positive or pertinent negative responses have been documented in the HPI. ROS Other: All systems not noted in ROS Statement are negative. Past Medical History Past Medical History: Asthma, Cancer, Heart Failure, Hypertension Additional Past Medical History / Comment(s): melanoma History of Any Multi-Drug Resistant Organisms: None Reported Past Surgical History: Bowel Resection, Cholecystectomy Additional Past Surgical History / Comment(s): cataract Past Anesthesia/Blood Transfusion Reactions: No Reported Reaction Past Psychological History: No Psychological Hx Reported Smoking Status: Never smoker Past Alcohol Use History: Occasional Past Drug Use History: None Reported - Past Family History Father Additional Family Medical History / Comment(s): Father had lung disease from occupational exposure and was on oxygen later in life. He lived to be 86yrs old. Mother Family Medical History: Diabetes Mellitus, Osteoarthritis (OA) Additional Family Medical History / Comment(s): Mother lived to be 80yrs. General Exam General appearance: alert, in no apparent distress Head exam: Present: atraumatic, normocephalic Eye exam: Present: normal appearance, PERRL, EOMI ENT exam: Present: normal exam Neck exam: Present: normal inspection. Absent: tenderness, meningismus Respiratory exam: Present: normal lung sounds bilaterally. Absent: respiratory distress, wheezes Cardiovascular Exam: Present: normal rhythm, bradycardia GI/Abdominal exam: Present: soft. Absent: distended, tenderness, guarding, rebound Extremities exam: Present: joint swelling (Right shoulder swelling decreased range of motion, distal pulses intact) Neurological exam: Present: alert, oriented X3, CN II-XII intact. Absent: motor sensory deficit Psychiatric exam: Present: normal affect, normal mood Skin exam: Present: warm, dry, intact. Absent: cyanosis, diaphoretic Course Vital Signs 04/23/21 04/23/21 15:19 16:38 Temperature 97.5 F L Pulse Rate 58 L 56 L Respiratory 20 20 Rate Blood Pressure 153/66 126/77 O2 Sat by Pulse 99 97 Oximetry - Reevaluation(s) Reevaluation #1: 04/23/21 1520 Patient declines pain medicine. EKG Findings - EKG Comments: EKG Findings:: EKG: Marked sinus bradycardia, incomplete right bundle branch block, rate of 47, RI interval 190, QRS duration 96, QTC 375, no ST segment elevation. Medical Decision Making - Medical Decision Making 89-year-old male with fall, and right shoulder injury. Patient has x-ray evidence of humeral neck fracture and possible glenoid fracture. I did discuss case with Sarah Borden from orthopedics with seen the patient and sent into the emergency department. She did request CT of the shoulder which is pending. CT of the brain negative for intracranial hemorrhage or mass effect. CT cervical spine negative for fracture subluxation. Chest x-rays within normal limits. Patient will follow with primary care physician and I did adjust his metoprolol down to 25 mg twice daily from 50 mg. I did discuss this with the primary care physician Dr. Rehman. Patient came to the emergency department already wearing a sling. Patient will follow-up WITH orthopedics and his primary care physician. - Lab Data Result diagrams: 04/23/21 16:09 04/23/21 16:09 Lab Results 04/23/21 04/23/21 04/23/21 Range/Units 16:09 16:09 16:09 WBC 13.7 H (3.8-10.6) k/uL RBC 3.81 L (4.30-5.90) m/uL Hgb 13.7 (13.0-17.5) gm/dL Hct 39.9 (39.0-53.0) % MCV 104.9 H (80.0-100.0) fL MCH 35.9 H (25.0-35.0) pg MCHC 34.2 (31.0-37.0) g/dL RDW 13.3 (11.5-15.5) % Plt Count 239 (150-450) k/uL MPV 6.9 Neutrophils % 77 % Lymphocytes % 14 % Monocytes % 6 % Eosinophils % 2 % Basophils % 0 % Neutrophils # 10.6 H (1.3-7.7) k/uL Lymphocytes # 1.9 (1.0-4.8) k/uL Monocytes # 0.8 (0-1.0) k/uL Eosinophils # 0.2 (0-0.7) k/uL Basophils # 0.0 (0-0.2) k/uL Macrocytosis Slight PT 11.2 (9.0-12.0) sec INR 1.1 (<1.2) APTT 21.4 L (22.0-30.0) sec Sodium 136 L (137-145) mmol/L Potassium 4.6 (3.5-5.1) mmol/L Chloride 100 (98-107) mmol/L Carbon Dioxide 28 (22-30) mmol/L Anion Gap 8 mmol/L BUN 18 (9-20) mg/dL Creatinine 0.98 (0.66-1.25) mg/dL Est GFR (CKD-EPI)AfAm 80 (>60 ml/min/1.73 sqM) Est GFR (CKD-EPI)NonAf 69 (>60 ml/min/1.73 sqM) Glucose 107 H (74-99) mg/dL Calcium 9.2 (8.4-10.2) mg/dL Magnesium 2.0 (1.6-2.3) mg/dL Total Bilirubin 0.7 (0.2-1.3) mg/dL AST 31 (17-59) U/L ALT 19 (4-49) U/L Alkaline Phosphatase 116 (38-126) U/L Troponin I (0.000-0.034) ng/mL Total Protein 6.5 (6.3-8.2) g/dL Albumin 3.9 (3.5-5.0) g/dL 04/23/21 Range/Units 16:09 WBC (3.8-10.6) k/uL RBC (4.30-5.90) m/uL Hgb (13.0-17.5) gm/dL Hct (39.0-53.0) % MCV (80.0-100.0) fL MCH (25.0-35.0) pg MCHC (31.0-37.0) g/dL RDW (11.5-15.5) % Plt Count (150-450) k/uL MPV Neutrophils % % Lymphocytes % % Monocytes % % Eosinophils % % Basophils % % Neutrophils # (1.3-7.7) k/uL Lymphocytes # (1.0-4.8) k/uL Monocytes # (0-1.0) k/uL Eosinophils # (0-0.7) k/uL Basophils # (0-0.2) k/uL Macrocytosis PT (9.0-12.0) sec INR (<1.2) APTT (22.0-30.0) sec Sodium (137-145) mmol/L Potassium (3.5-5.1) mmol/L Chloride (98-107) mmol/L Carbon Dioxide (22-30) mmol/L Anion Gap mmol/L BUN (9-20) mg/dL Creatinine (0.66-1.25) mg/dL Est GFR (CKD-EPI)AfAm (>60 ml/min/1.73 sqM) Est GFR (CKD-EPI)NonAf (>60 ml/min/1.73 sqM) Glucose (74-99) mg/dL Calcium (8.4-10.2) mg/dL Magnesium (1.6-2.3) mg/dL Total Bilirubin (0.2-1.3) mg/dL AST (17-59) U/L ALT (4-49) U/L Alkaline Phosphatase (38-126) U/L Troponin I <0.012 (0.000-0.034) ng/mL Total Protein (6.3-8.2) g/dL Albumin (3.5-5.0) g/dL Disposition Clinical Impression: Near syncope, Shoulder fracture, right Disposition: HOME SELF-CARE Condition: Good Instructions (If sedation given, give patient instructions): Near Syncope (ED), Proximal Humerus Fracture (ED) Additional Instructions: Please reduce your metoprolol to 25 mg twice daily. Prescriptions: HYDROcodone/APAP 5-325MG [[place] 5-325] 1 tab PO Q6HR PRN #12 tab PRN Reason: Pain Is patient prescribed a controlled substance at d/c from ED?: No Referrals: Delio Rehman MD [Primary Care Provider] - 1-2 days Sarah Borden PAC [PHYSICIAN GUIDANCE DIRECTOR] - 1-2 days Time of Disposition: 17:01
[2021-04-23 16:18] LABS: Basophils % (A) 0 %; Eosinophils # (A) 0.2 k/uL (0-0.7); Eosinophils % (A) 2 %; HCT 39.9 % (39.0-53.0); HGB 13.7 gm/dL (13.0-17.5); Lymphocytes # (A) 1.9 k/uL (1.0-4.8); Lymphocytes % (A) 14 %; MCH 35.9 pg (25.0-35.0); MCHC 34.2 g/dL (31.0-37.0); MCV 104.9 fL (80.0-100.0); Macrocytosis Slight; Mean Platelet Volume 6.9; Monocytes # (A) 0.8 k/uL (0-1.0); Monocytes % (A) 6 %; Neutrophils # (A) 10.6 k/uL (1.3-7.7); Neutrophils % (A) 77 %; Platelet Count 239 k/uL (150-450); RBC 3.81 m/uL (4.30-5.90); RDW 13.3 % (11.5-15.5); WBC 13.7 k/uL (3.8-10.6)
[2021-04-23 16:33] LABS: Albumin 3.9 g/dL (3.5-5.0); Calcium 9.2 mg/dL (8.4-10.2); Potassium 4.6 mmol/L (3.5-5.1); Total Bilirubin 0.7 mg/dL (0.2-1.3); Total Protein 6.5 g/dL (6.3-8.2)
[2021-04-23 16:38] LABS: INR 1.1 (<1.2); Partial Thromboplastin Time 21.4 sec (22.0-30.0); Prothrombin Time 11.2 sec (9.0-12.0)
--- NOTE | 2021-04-23 16:49 | XR ---
EXAMINATION TYPE: XR shoulder complete RT DATE OF EXAM: 04/23/2021 CLINICAL HISTORY: Falling injury with pain TECHNIQUE: Three views of the right shoulder are obtained. COMPARISON: None. FINDINGS: [place] osseous structures are demineralized which is noted to the radiographic sensitivity. There is impacted transverse fracture surgical neck right proximal humerus. No glenohumeral joint di slocation. Moderate to severe narrowing and moderate spurring. Mild narrowing of the acromioclavicula r joint. Slight ribs are intact. IMPRESSION: There is an acute impacted transverse fracture surgical neck right proximal humerus.
--- NOTE | 2021-04-23 16:50 | XR ---
EXAMINATION TYPE: XR chest 1V portable DATE OF EXAM: 04/23/2021 COMPARISON: Chest x-ray January 28, 2021 HISTORY: Fall injury with pain. TECHNIQUE: Single frontal view of the chest is obtained. FINDINGS: Diminished inspiration. There is chronic parenchymal change bilaterally without suspicious new air space opacity, pleural effusion, or pneumothorax seen. The cardiac silhouette size is upper limits of normal. The osseous structures are demineralized. Degenerative change bilateral glenohum eral joints. Acute slightly impacted fracture surgical neck right proximal humerus partially imaged. IMPRESSION: Diminished inspiration, no acute pulmonary process.
--- NOTE | 2021-04-23 16:57 | CT ---
EXAMINATION TYPE: CT brain timmy kenny DATE OF EXAM: 04/23/2021 COMPARISON: NONE HISTORY: FALL injury with headache and neck pain. CT DLP: 1572.6 mGycm. Automated Exposure Control for Dose Reduction was Utilized. TECHNIQUE: CT scan of the head and cervical spine are performed without contrast. FINDINGS: There is no acute intracranial hemorrhage or midline shift identified. Mild to moderate v entricular and sulcal prominence. Mild to moderate low-attenuation in the deep and periventricular wh ite matter. The globes are intact and the visualized sinuses are clear. The calvarium is intact. Cervical spine is visualized in its entirety from C1 through upper thoracic levels and demonstrates s traightened alignment without evidence of acute fracture or dislocation. S-shaped scoliosis and coron al images. Prevertebral soft tissue appears within normal limits. The C1-C2 articulation is within n ormal limits on the coronal images. Vertebral body heights are maintained. Moderate to severe narrowi ng and spurring C5-C6 level. Mild to moderate narrowing C6-C7 level. Axial images show multilevel uncovertebral facet degenerative changes greater on the left side. Thyro id gland appears within normal limits. Lung apices show no pneumothorax. IMPRESSION: 1. There is no acute fracture or dislocation evident in the cervical spine. 2. No acute intracranial hemorrhage or midline shift is seen.
[2021-04-23] MEDS ORDERED: HYDROcodone/APAP 5-325MG 1 EACH TAB PO STA (17:00)
[2021-04-23 17:17] VITALS: BP 121/92; PULSE 60
--- NOTE | 2021-04-23 18:03 | CT ---
EXAMINATION TYPE: CT shoulder RT wo con DATE OF EXAM: 04/23/2021 COMPARISON: radiographs HISTORY: Right shoulder pain CT DLP: 1351.3 mGycm Automated exposure control for dose reduction was used. FINDINGS: The previously described right surgical neck fracture of the proximal humerus is redemonstrated, well delineated and axial and sagittal and coronal views as well as the multiple 3-D reconstruction rende rings. The AC joint is congruent. There are no other fractures. No incidental findings. IMPRESSION: FRACTURE/DISLOCATION DOCUMENTED.
== END 2021-04-23 18:28 | disposition home or self-care (01) ==
LOC: EC 15:16
DX: S42.211A Unspecified displaced fracture of surgical neck of right humerus, initial encounter for closed fracture (principal); R55 Syncope and collapse; I11.0 Hypertensive heart disease with heart failure; I50.9 Heart failure, unspecified; J45.909 Unspecified asthma, uncomplicated; Z85.820 Personal history of malignant melanoma of skin; Z79.01 Long term (current) use of anticoagulants; Z79.899 Other long term (current) drug therapy; W18.30XA Fall on same level, unspecified, initial encounter; Y93.H2 Activity, gardening and landscaping
CPT/HCPCS: 36415; 70450; 71045; 72125; 80053; 83735; 84484; 85025; 85610; 85730; 99285

== ENCOUNTER 2021-05-07 18:40 | Emergency (ER) | payer MEDICARE ==
[2021-05-07 18:47] VITALS: TEMP 97.3
[2021-05-07] MEDS ORDERED: SODIUM CHLORIDE 0.9% 500 ML 500 ML IV ONE (19:21)
[2021-05-07] MEDS ORDERED: DILTIAZEM DRIP BOLUS FROM BAG 1 MG SOLN IV STA (19:21)
[2021-05-07 19:22] LABS: Basophils # (A) 0.1 k/uL (0-0.2); Basophils % (A) 1 %; Eosinophils # (A) 0.3 k/uL (0-0.7); Eosinophils % (A) 4 %; HCT 36.4 % (39.0-53.0); HGB 12.7 gm/dL (13.0-17.5); Lymphocytes # (A) 2.3 k/uL (1.0-4.8); Lymphocytes % (A) 30 %; MCH 36.8 pg (25.0-35.0); MCHC 34.9 g/dL (31.0-37.0); MCV 105.5 fL (80.0-100.0); Macrocytosis Moderate; Monocytes # (A) 0.5 k/uL (0-1.0); Monocytes % (A) 7 %; Neutrophils # (A) 4.4 k/uL (1.3-7.7); Neutrophils % (A) 57 %; Platelet Count 303 k/uL (150-450); RBC 3.45 m/uL (4.30-5.90); WBC 7.7 k/uL (3.8-10.6)
[2021-05-07 19:30] LABS: Albumin 3.6 g/dL (3.5-5.0); Potassium 4.2 mmol/L (3.5-5.1); Total Bilirubin 0.6 mg/dL (0.2-1.3); Total Protein 6.3 g/dL (6.3-8.2)
[2021-05-07] MEDS ORDERED: DILTIAZEM 125 MG in SODIUM CHLORIDE 0.9% 100 ML IV SCH (19:30)
[2021-05-07 19:41] LABS: Partial Thromboplastin Time 27.3 sec (22.0-30.0); Prothrombin Time 10.5 sec (9.0-12.0)
--- NOTE | 2021-05-07 19:41 | ED ---
Arrhythmia/Palpitations HPI - General Chief Complaint: Arrhythmia/Palpitations Stated Complaint: Afib/fast HR Time Seen by Provider: 05/07/21 19:13 Source: patient Mode of arrival: ambulatory Limitations: no limitations - History of Present Illness Initial Comments: 89 year-old male patient presenting for evaluation of elevated heart rate. Patient states that he generally checks his blood pressure and heart rate throughout the day. He checked it today and it was high. States he was feeling a fluttering in his chest. Denies any chest pain or shortness of breath. Denies nausea or vomiting. Denies any fever or chills. Denies dizziness or weakness. States that a few weeks ago his doctor increased his metoprolol to 50mg BID, states he had a fall 2 weeks ago, and it was decreased back to 25mg BID. Denies any other medication changes. Patient denies any recent rash, cough, abdominal pain, nausea, vomiting, diarrhea, constipation, back pain, numbness, tingling, hematuria, dysuria, urinary urgency, urinary frequency, headache, visual changes, or any other complaints. - Related Data Home Medications Medication Instructions Recorded Confirmed Furosemide [Lasix] 40 mg PO DAILY 01/28/21 05/07/21 Latanoprost [Xalatan 0.005%] 1 drop RIGHT EYE HS 01/28/21 05/07/21 Magnesium 400 mg PO HS 01/28/21 05/07/21 Montelukast [Singulair] 10 mg PO DAILY 01/28/21 05/07/21 Potassium Chloride ER [K-Dur 10] 10 meq PO DAILY 01/28/21 05/07/21 Timolol Maleate [timoloL maleate 1 drop RIGHT EYE BID 01/28/21 05/07/21 0.5% Ophth Gel] Albuterol Sulfate [Proair Hfa] 2 puff INHALATION RT-Q6H PRN 04/23/21 05/07/21 Cyanocobalamin (Vitamin B-12) 1,000 mcg PO HS 04/23/21 05/07/21 [Vitamin B-12] Vit C/E/Zn/Coppr/Lutein/Zeaxan 1 cap PO HS 04/23/21 05/07/21 [Preservision Areds 2 Softgel] Previous Rx's Medication Instructions Recorded Apixaban [Eliquis] 5 mg PO BID #60 tab 01/28/21 Metoprolol Tartrate [Lopressor] 50 mg PO BID #180 tab 01/28/21 Allergies Allergy/AdvReac Type Severity Reaction Status Date / Time No Known Allergies Allergy Verified 05/07/21 21:22 Review of Systems ROS Statement: Those systems with pertinent positive or pertinent negative responses have been documented in the HPI. ROS Other: All systems not noted in ROS Statement are negative. Past Medical History Past Medical History: Asthma, Cancer, Heart Failure, Hypertension Additional Past Medical History / Comment(s): melanoma History of Any Multi-Drug Resistant Organisms: None Reported Past Surgical History: Bowel Resection, Cholecystectomy Additional Past Surgical History / Comment(s): cataract Past Anesthesia/Blood Transfusion Reactions: No Reported Reaction Past Psychological History: No Psychological Hx Reported Smoking Status: Never smoker Past Alcohol Use History: Occasional Past Drug Use History: None Reported - Past Family History Father Additional Family Medical History / Comment(s): Father had lung disease from occupational exposure and was on oxygen later in life. He lived to be 86yrs old. Mother Family Medical History: Diabetes Mellitus, Osteoarthritis (OA) Additional Family Medical History / Comment(s): Mother lived to be 80yrs. General Exam Limitations: no limitations General appearance: alert, in no apparent distress, other (Physical well- developed, well-nourished elderly male patient in no acute distress. Vital signs upon presentation temperature 97.3F, pulse 158, respirations 20, blood pressure 116/67, pulse ox 98% on room air.) Eye exam: Present: normal appearance, PERRL, EOMI. Absent: scleral icterus, conjunctival injection, periorbital swelling ENT exam: Present: normal exam, normal oropharynx, mucous membranes moist Cardiovascular Exam: Present: normal rhythm, tachycardia, normal heart sounds. Absent: systolic murmur, diastolic murmur, rubs, gallop, clicks GI/Abdominal exam: Present: soft, normal bowel sounds. Absent: distended, tenderness, guarding, rebound, rigid Neurological exam: Present: alert, oriented X3, CN II-XII intact Psychiatric exam: Present: normal affect, normal mood Skin exam: Present: warm, dry, intact, normal color. Absent: rash Course Vital Signs 05/07/21 05/07/21 05/07/21 18:43 19:56 20:04 Temperature 97.3 F L Pulse Rate 158 H 158 H 67 Respiratory 20 16 Rate Blood Pressure 116/67 90/69 O2 Sat by Pulse 98 97 96 Oximetry 05/07/21 05/07/21 20:21 21:40 Temperature Pulse Rate 66 74 Respiratory 16 16 Rate Blood Pressure 102/51 129/68 O2 Sat by Pulse 96 96 Oximetry EKG Findings - EKG Comments: EKG Findings:: EKG obtained at 1850 shows atrial flutter with a rate of 156, NM interval 190, QRS duration 88, QT 242, QTc 390. Medical Decision Making - Medical Decision Making 89 year-old male patient presents for elevated heart rate. Reports fluttering in chest. No pain. Labs reviewed and are unremarkable. He was found to be in A Flutter with rate at 158. He was given 15mg IV dose of cardizem. This did convert back to normal sinus rhythm. EKG obtained and showed sinus rhythm with RBBB redemonstrated from previous EKG. Patient would like to be discharged. He was instructed to increase his metoprolol back to 50mg BID and call heat treat operator on Tuesday. Return parameters were discussed in detail. He verbalizes understanding and agrees with this plan. Case discussed in detail with my attending Dr. Garcia. - Lab Data Result diagrams: 05/07/21 19:12 05/07/21 19:12 Lab Results 05/07/21 05/07/21 05/07/21 Range/Units 19:12 19:12 19:12 WBC 7.7 (3.8-10.6) k/uL RBC 3.45 L (4.30-5.90) m/uL Hgb 12.7 L (13.0-17.5) gm/dL Hct 36.4 L (39.0-53.0) % MCV 105.5 H (80.0-100.0) fL MCH 36.8 H (25.0-35.0) pg MCHC 34.9 (31.0-37.0) g/dL RDW 14.0 (11.5-15.5) % Plt Count 303 (150-450) k/uL MPV 7.0 Neutrophils % 57 % Lymphocytes % 30 % Monocytes % 7 % Eosinophils % 4 % Basophils % 1 % Neutrophils # 4.4 (1.3-7.7) k/uL Lymphocytes # 2.3 (1.0-4.8) k/uL Monocytes # 0.5 (0-1.0) k/uL Eosinophils # 0.3 (0-0.7) k/uL Basophils # 0.1 (0-0.2) k/uL Macrocytosis Moderate PT 10.5 (9.0-12.0) sec INR 1.0 (<1.2) APTT 27.3 (22.0-30.0) sec Sodium 137 (137-145) mmol/L Potassium 4.2 (3.5-5.1) mmol/L Chloride 101 (98-107) mmol/L Carbon Dioxide 29 (22-30) mmol/L Anion Gap 7 mmol/L BUN 24 H (9-20) mg/dL Creatinine 1.00 (0.66-1.25) mg/dL Est GFR (CKD-EPI)AfAm 77 (>60 ml/min/1.73 sqM) Est GFR (CKD-EPI)NonAf 67 (>60 ml/min/1.73 sqM) Glucose 144 H (74-99) mg/dL Calcium 9.0 (8.4-10.2) mg/dL Magnesium (1.6-2.3) mg/dL Total Bilirubin 0.6 (0.2-1.3) mg/dL AST 32 (17-59) U/L ALT 23 (4-49) U/L Alkaline Phosphatase 135 H (38-126) U/L Troponin I (0.000-0.034) ng/mL Total Protein 6.3 (6.3-8.2) g/dL Albumin 3.6 (3.5-5.0) g/dL TSH (0.465-4.680) mIU/L 05/07/21 05/07/21 Range/Units 19:12 19:38 WBC (3.8-10.6) k/uL RBC (4.30-5.90) m/uL Hgb (13.0-17.5) gm/dL Hct (39.0-53.0) % MCV (80.0-100.0) fL MCH (25.0-35.0) pg MCHC (31.0-37.0) g/dL RDW (11.5-15.5) % Plt Count (150-450) k/uL MPV Neutrophils % % Lymphocytes % % Monocytes % % Eosinophils % % Basophils % % Neutrophils # (1.3-7.7) k/uL Lymphocytes # (1.0-4.8) k/uL Monocytes # (0-1.0) k/uL Eosinophils # (0-0.7) k/uL Basophils # (0-0.2) k/uL Macrocytosis PT (9.0-12.0) sec INR (<1.2) APTT (22.0-30.0) sec Sodium (137-145) mmol/L Potassium (3.5-5.1) mmol/L Chloride (98-107) mmol/L Carbon Dioxide (22-30) mmol/L Anion Gap mmol/L BUN (9-20) mg/dL Creatinine (0.66-1.25) mg/dL Est GFR (CKD-EPI)AfAm (>60 ml/min/1.73 sqM) Est GFR (CKD-EPI)NonAf (>60 ml/min/1.73 sqM) Glucose (74-99) mg/dL Calcium (8.4-10.2) mg/dL Magnesium 2.1 (1.6-2.3) mg/dL Total Bilirubin (0.2-1.3) mg/dL AST (17-59) U/L ALT (4-49) U/L Alkaline Phosphatase (38-126) U/L Troponin I <0.012 (0.000-0.034) ng/mL Total Protein (6.3-8.2) g/dL Albumin (3.5-5.0) g/dL TSH 2.810 (0.465-4.680) mIU/L - EKG Data -: EKG Interpreted by Me EKG Comments: EKG obtained at 2105 shows sinus rhythm with premature supraventricular complexes with a rate of 67, NM interval 192, QR congregational 94, QT 366, QTC 386. No evidence of ST elevation or depression. Disposition Clinical Impression: Atrial flutter Disposition: HOME SELF-CARE Condition: Good Instructions (If sedation given, give patient instructions): Atrial Flutter (ED) Additional Instructions: Start taking the metoprolol 50 mg twice a day, call your heat treat operator on Tuesday for further instruction. Return to the emergency department immediately for any new, worsening, or concerning symptoms. Is patient prescribed a controlled substance at d/c from ED?: No Referrals: Delio Rehman MD [Primary Care Provider] - 1-2 days Time of Disposition: 21:14
[2021-05-07 19:58] VITALS: RESP 16
[2021-05-07 20:09] LABS: Magnesium 2.1 mg/dL (1.6-2.3)
[2021-05-07] MEDS ORDERED: METOPROLOL TARTRATE 50 MG TAB PO STA (21:12)
[2021-05-07 21:46] VITALS: BP 129/68; PULSE 74
== END 2021-05-07 21:50 | disposition home or self-care (01) ==
LOC: EC 18:40
DX: I48.92 Unspecified atrial flutter (principal); J45.909 Unspecified asthma, uncomplicated; I50.9 Heart failure, unspecified; I10 Essential (primary) hypertension; Z85.820 Personal history of malignant melanoma of skin; Z79.899 Other long term (current) drug therapy
CPT/HCPCS: 36415; 80053; 83735; 84443; 84484; 85025; 85610; 85730; 93005; 96361; 96374; 96375; 96376; 99285